=== PATIENT | male | born 1960 | race Caucasian/White ===

== ENCOUNTER 2021-07-13 23:20 | Emergency (ER) | payer MEDICARE, MEDICAID, SELFPAY ==
[2021-07-13 23:44] VITALS: BP 137/89; PULSE 90; RESP 18; TEMP 36.3; O2SAT 98; BMI 26.4
== END 2021-07-14 00:25 | disposition left against medical advice (07) ==
PROVIDERS: Emergency Provider Emergency Medicine
DX: F33.1 Major depressive disorder, recurrent, moderate (principal); R21 Rash and other nonspecific skin eruption; F41.1 Generalized anxiety disorder; F43.0 Acute stress reaction
CPT/HCPCS: 99281; 99282

== ENCOUNTER 2021-08-02 23:42 | Emergency (ER) | payer MEDICARE, MEDICAID, SELFPAY ==
[2021-08-02 23:45] VITALS: BP 138/87; PULSE 78; RESP 16; O2SAT 98; BMI 26.7
--- NOTE | 2021-08-03 00:09 | ED.SKABFB ---
HPI - Skin/Abscess/Foreign Bdy General Chief complaint: Skin/Abscess/Foreign Body Stated complaint: Rash on face Time Seen by Provider: 08/03/21 00:09 Source: patient Mode of arrival: ambulatory History of Present Illness HPI narrative: 61-year-old male with a past medical history of anxiety, depression, sleep apnea, presenting to the ED complaining of right-sided facial rash x1 week. Reports rash is pruritic, worse with shaving. Denies new exposures, lotions/detergents, recent trauma, tick/insect bites. Of note patient has old broken tooth, that is nontender, unchanged MD complaint: rash Related Data Previous Rx's Medication Instructions Recorded cetirizine 10 mg capsule (Zyrtec) 10 mg PO DAILY PRN #14 cap 08/03/21 diphenhydramine HCl 25 mg capsule 25 mg PO Q6H PRN #14 cap 08/03/21 (Benadryl) hydrocortisone 0.5 % topical cream 1 appl TOPICAL BID PRN #28.4 g 08/03/21 Allergies Allergy/AdvReac Type Severity Reaction Status Date / Time No Known Allergies Allergy Verified 07/13/21 23:43 Review of Systems Review of Systems: Constitutional: No Fever, No Chills ENT/Mouth: No Ear Pain, No Nasal Congestion, No sore throat, No Rhinorrhea, No Swallowing Difficulty Cardiovascular: No Chest Pain, No SOB Respiratory: No Cough Gastrointestinal: No Nausea, No Vomiting, No Abdominal pain Musculoskeletal: No joint pain, No Myalgias, No Joint Swelling Skin: No Skin Lesions, + rash Neuro: No Weakness, No Numbness, No Paresthesias Yes all other systems are reviewed and are negative [facility] Past Medical History Attestation statement: The following information was validated with the patient. Medical History (Updated 08/03/21 @ 00:12 by JAGJIT Torres) Anxiety Back pain Depression Sleep apnea Social History Social History Advance Directives: No Advance Directives Information Provided: No Physical Exam Vital Signs: Vital Signs: Last Vital Signs Pulse 78 08/02/21 23:45 Resp 16 08/02/21 23:45 BP 138/87 08/02/21 23:45 Pulse Ox 98 08/02/21 23:45 Body Mass Index 26.7 Const: General: cooperative, healthy appearing and no acute distress Orientation/consciousness: patient oriented x3 Limitations: no limitations HENMT: Other: No signs of intraoral infection/abscess, fluctuance or induration Head: Yes normal to inspection Ears: hearing grossly normal bilaterally General nose exam: Normal external nose present Teeth and gingiva: poor dentition Throat: Yes posterior oropharynx normal Eyes: General: appearance normal, both eyes and all related structures EOM: EOMs intact bilaterally Neck: Neck: Yes normal visual inspection Resp: Effort & Inspection: normal respiratory effort and no respiratory distress Cardio: Rate: regular rate Skin: Other: Right-side of face with large patch of raised erythema under canchola. No pustules/papules. Not warm Wounds: no wounds Neuro: General: patient oriented x3 Gait exam (Neuro): Normal gait present Extrem: General: Yes normal to inspection MDM - Skin/Abscess/Foreign Bdy MDM Narrative Medical decision making narrative: 61-year-old male with a past medical history of anxiety, depression, sleep apnea, presenting to the ED complaining of right-sided facial rash x1 week. On exam vital signs stable, rash appears to be a eczematous. Lower suspicion for folliculitis or cellulitis. Will prescribe patient low potency topical steroid, Benadryl, and Zyrtec Medical Records Attestation: I reviewed the patient's medical records. Lab Data Attestation: I reviewed the patient's lab results. Discharge Plan Discharge Clinical Impression: Facial dermatitis Patient Disposition: Home, Self-Care Instructions: Dermatitis (ED) Additional Instructions: Benadryl and Zyrtec will help with itching/allergic symptoms, take Benadryl at night as it will make you drowsy Hydrocortisone as a topical steroid cream, apply only to rash on face, do not apply in excessive amounts as topical steroids to face, dental so region, hands, and feet can potentially discolor your skin, this usually only happens at high potency doses which you were not prescribed Please follow-up with her doctor, in dermatology If rash persists or worsens, you develop fever please return to the ED Prescriptions: New diphenhydramine HCl [Benadryl] 25 mg capsule 25 mg PO Q6H PRN (Reason: allergic symptoms) Qty: 14 RF: 0 Zyrtec 10 mg capsule 10 mg PO DAILY PRN (Reason: allergy symptoms) Qty: 14 RF: 0 hydrocortisone 0.5 % cream 1 appl topical BID PRN (Reason: rash) Qty: 28.4 RF: 0 Referrals: Alberto Kelly MD [Physician] - 2 days Namita Tran NP [Nurse Practitioner] - 2 days Heather Laguna PA-C [Physician Recovery Operator Helper] - 2 days Alison Villalpando PA-C [Physician Recovery Operator Helper] - 2 days Paddy Barroso MD [Physician] - 2 days
== END 2021-08-03 00:29 | disposition home or self-care (01) ==
PROVIDERS: Emergency Provider Emergency Medicine Emergency Medical Services
DX: L30.9 Dermatitis, unspecified (principal)
CPT/HCPCS: 99283

== ENCOUNTER 2021-12-20 11:36 | Emergency (ER) | payer MEDICARE, MEDICAID, SELFPAY ==
[2021-12-20 11:44] VITALS: BP 142/92; PULSE 100; RESP 18; TEMP 36.1; O2SAT 99; BMI 27.4
[2021-12-20] MEDS: Ketorolac Tromethamine 30 MG/ML VIAL IM (12:18)
[2021-12-20 12:22] LABS: MANUAL DIFF FLAG NO
[2021-12-20 12:27] LABS: Basophils Percent Auto 0.6 % (0-2); Eosinophils Absolute Auto 0.6 X10*3/uL (0.0-0.4); Hematocrit 46.1 % (42.0-52.0); Hemoglobin 15.5 g/dl (14.0-18.0); Imm Gran Abs Auto 0.01 X10*3/uL (0.00-0.03); Imm Gran Pct Auto 0.1 % (0.0-0.4); Lymphocytes Absolute Auto 1.4 X10*3/uL (1.2-4.9); Lymphocytes Percent Auto 19.5 % (20-40); Mean Corpuscular HGB Conc 33.6 g/dl (31.0-36.0); Mean Corpuscular Volume 95.2 fL (80.0-98.0); Mean Platelet Volume 9.3 fL (9.4-12.4); Monocytes Absolute Auto 0.8 X10*3/uL (0.1-1.2); Monocytes Percent Auto 11.4 % (2-11); Neutrophils Absolute Auto 4.2 x10*3/uL (2.0-8.3); Neutrophils Percent Auto 59.4 % (45-73); Platelet Count 185 X10*3/uL (160-400); Red Blood Count 4.84 X10*6/uL (4.60-5.80); Red Cell Distribution Width 12.2 % (11.0-16.0)
--- NOTE | 2021-12-20 12:38 | ED_ITS ---
HPI - General Adult General Chief complaint: General Medical Stated complaint: eyes swollen/itchiness/redness Time Seen by Provider: 12/20/21 11:55 Source: patient Mode of arrival: ambulatory History of Present Illness HPI narrative: 61-year-old male with past medical history of anxiety, depression, sleep apnea, presenting to the ED complaining of facial erythema, pain, and dry/cracking skin x months. Reports finished antibiotics a few weeks ago by PCP without improvement. Was also seen in our ED for similar symptoms in October without improvement. Admits has dermatology follow-up in 3 weeks. Reports skin burning and feels hot. Denies ocular involvement, vision change, pain with EOMs, drainage from face, fever, chills, sore throat, new exposures Onset (ago): month(s) Related Data Previous Rx's Medication Instructions Recorded cetirizine 10 mg capsule (Zyrtec) 10 mg PO DAILY PRN #14 cap 08/03/21 diphenhydramine HCl 25 mg capsule 25 mg PO Q6H PRN #14 cap 08/03/21 (Benadryl) hydrocortisone 0.5 % topical cream 1 appl TOPICAL BID PRN #28.4 g 08/03/21 bacitracin 500 unit/gram topical 1 appl TOPICAL BID #30 g 12/20/21 ointment Allergies Allergy/AdvReac Type Severity Reaction Status Date / Time No Known Allergies Allergy Verified 07/13/21 23:43 Review of Systems Review of Systems: Constitutional: No Fever, No Chills ENT/Mouth: No Ear Pain, No Hoarseness, No sore throat, No Rhinorrhea, No Swallow ing Difficulty Cardiovascular: No Chest Pain, No SOB Respiratory: No Cough, No Wheezing Gastrointestinal: No Nausea, No Vomiting, No Abdominal pain Genitourinary: No Dysuria, No Flank Pain Musculoskeletal: No joint pain, No Myalgias, No Joint Swelling Skin: No Skin Lesions, + rash Neuro: No Weakness, No Numbness, No Paresthesias Yes all other systems are reviewed and are negative [facility] Past Medical History Attestation statement: The following information was validated with the patient. Medical History Anxiety Back pain Depression Sleep apnea Social History Social History Advance Directives: No Advance Directives Information Provided: No Physical Exam ED Vital Signs: Vital Signs - 24 hr 12/20/21 11:44 Temperature 97.0 F Pulse Rate 100 Respiratory Rate 18 Blood Pressure 142/92 H Pulse Oximetry 99 BMI result Body Mass Index 27.4 Const General: cooperative, healthy appearing and no acute distress Orientation/consciousness: patient oriented x3 Limitations: no limitations HENMT Head: Yes normal to inspection Ears: hearing grossly normal bilaterally General nose exam: Normal external nose present Mouth: Normal oral and palatal mucosa present Throat: Yes posterior oropharynx normal, Yes uvula midline, No peritonsillar mass and No uvula laterally displaced Eyes General: appearance normal, both eyes and all related structures EOM: EOMs intact bilaterally Neck Neck: Yes normal visual inspection and Yes no meningeal signs Resp Effort & Inspection: normal respiratory effort and no respiratory distress Cardio Rate: regular rate Heart sounds: S1 normal heart sound present and S2 normal heart sound present Skin Other: +facial flushing with skin cracking/dry skin > infraorbitally. No warmth. No drainage. No fluctuance/induration No appreciable ocular involvement. EOMs intact without pain Rashes: rashes noted Wounds: no wounds Neuro General: patient oriented x3 and no meningeal signs Gait exam (Neuro): Normal gait present Extrem General: Yes normal to inspection Course Course Course Narrative: -[id number]--no leukocytosis. Labs otherwise unremarkable. Patient is to follow-up with Dermatology. Medical Decision Making MDM Narrative Medical decision making narrative: 61-year-old male with past medical history of anxiety, depression, sleep apnea, presenting to the ED complaining of facial erythema, pain, and dry/cracking skin x months. On exam vital signs stable, NAD, physical exam as above, consistent with ?Psoriasis vs rosacea vs Dermatitis. Lower concern for cellulitis. Low concern for allergic reaction/exposure due to length of time. Plan: CBC, BMP Medical Records Medical records reviewed: Yes I reviewed the patient's medical records. Lab Data Lab results reviewed: Yes I reviewed the patient's lab results. Result diagrams: 12/20/21 12:17 12/20/21 12:17 Labs: Lab Results 12/20/21 12/20/21 Range/Units 12:17 12:17 WBC 7.0 (4.8-10.8) X10*3/uL RBC 4.84 (4.60-5.80) X10*6/uL Hgb 15.5 (14.0-18.0) g/dl Hct 46.1 (42.0-52.0) % MCV 95.2 (80.0-98.0) fL MCH 32.0 (27.0-33.0) pg MCHC 33.6 (31.0-36.0) g/dl RDW 12.2 (11.0-16.0) % Plt Count 185 (160-400) X10*3/uL MPV 9.3 L (9.4-12.4) fL Immature Gran % (Auto) 0.1 (0.0-0.4) % Neut % (Auto) 59.4 (45-73) % Lymph % (Auto) 19.5 L (20-40) % [place] % (Auto) 11.4 H (2-11) % Eos % (Auto) 9.0 H (0-4) % Baso % (Auto) 0.6 (0-2) % Lymph # (Auto) 1.4 (1.2-4.9) X10*3/uL [place] # (Auto) 0.8 (0.1-1.2) X10*3/uL Eos # (Auto) 0.6 H (0.0-0.4) X10*3/uL Baso # (Auto) 0.0 (0.0-0.2) X10*3/uL Abs Immat Gran (auto) 0.01 (0.00-0.03) X10*3/uL Absolute Neuts (auto) 4.2 (2.0-8.3) x10*3/uL Absolute Nucleated RBC 0.000 (0.0-0.012) X10*3/uL Nucleated RBC % (auto) 0.0 (0.0-0.2) /100WBC Sodium 139 (135-145) mmol/L Potassium 4.2 (3.3-5.1) mmol/L Chloride 105 (96-108) mmol/L Carbon Dioxide 29 (22-29) mmol/L Anion Gap 9 L (12-20) BUN 14 (9-16) mg/dL Creatinine 1.11 (0.5-1.4) mg/dL Estim Creat Clear Calc 60.7 Estimated GFR > 60 Random Glucose 106 (60-115) mg/dL Calcium 9.5 (8.4-10.2) mg/dL Discharge Plan Discharge Clinical Impression: Facial flushing Patient Disposition: Home, Self-Care Additional Instructions: YOU NEED TO FOLLOW-UP WITH DERMATOLOGY Try topical bacitracin she is an antibiotic ointment, avoid contact with the RI apply topical Eucerin, [id number] lotion. Keep area moist. Avoid the sun if area begins to look infected, is red, you have drainage from the area, developed fever please return to the emergency department NECESITAS SEGUIMIENTO CON DERMATOLOG?A Pruebe la bacitracina t?pica, es aletha pomada antibi?teresa, evite el contacto con el RI. aplique Eucerin t?nelson, loci?n de venta ash. Mantenga el ?aleksandra h?tata. Kassi el kofi si el ?aleksandra comienza a lucir infectada, est? tanner, tiene drenaje del ?aleksandra, desarroll? fiebre, regrese al departamento de emergencias Prescriptions: New bacitracin 500 unit/gram ointment 1 appl topical BID Qty: 30 1RF No Action diphenhydramine HCl [Benadryl] 25 mg capsule 25 mg PO Q6H PRN (Reason: allergic symptoms) Qty: 14 0RF Zyrtec 10 mg capsule 10 mg PO DAILY PRN (Reason: allergy symptoms) Qty: 14 0RF hydrocortisone 0.5 % cream 1 appl topical BID PRN (Reason: rash) Qty: 28.4 0RF Rx Instructions: Only apply to rash, do not apply excessive amounts to face, genital region, hands, or feet as has potentiate old to discolor skin at high potency doses Referrals: Halle Barnes PA [Physician Automatic Seamer] - 2 days Mauricio Foster MD [Physician] - 2 days Angel Machado MD [Physician] - 2 days Alberto Kelly MD [Physician] - 2 days Alison Villalpando PA-C [Physician Automatic Seamer] - 2 days Ferdinand Guzmán MD [Physician] - 2 days Paddy Barroso MD [Physician] - 2 days Can Mckenzie MD [Physician] - 2 days Kina Samano MD [Physician] - 2 days Ranjan Rascon MD [Primary Care Provider] - 2 days Kelsie Swift MD [Physician] - 2 days Charline Blue PA [Physician Automatic Seamer] - 2 days Print Language: Citizen [place]
[2021-12-20 12:43] LABS: Anion Gap 9 (12-20); Blood Urea Nitrogen 14 mg/dL (9-16); Calcium 9.5 mg/dL (8.4-10.2); Carbon Dioxide 29 mmol/L (22-29); Chloride 105 mmol/L (96-108); Creatinine Clr Calc Pharmacy 60.7; Estimated Glomerular Filt Rate > 60; Glucose Random 106 mg/dL (60-115); Potassium 4.2 mmol/L (3.3-5.1); Sodium 139 mmol/L (135-145)
== END 2021-12-20 13:24 | disposition home or self-care (01) ==
PROVIDERS: Physician Assistant; Emergency Provider Emergency Medicine; PCP Internal Medicine
DX: R23.2 Flushing (principal); R21 Rash and other nonspecific skin eruption; Z79.899 Other long term (current) drug therapy
CPT/HCPCS: 36415; 80048; 85025; 96372; 99284; J1885

== ENCOUNTER 2022-12-25 14:07 | Emergency (ER) | payer MEDICARE, MEDICAID, SELFPAY ==
[2022-12-25 14:11] VITALS: BP 136/94; PULSE 118; RESP 20; TEMP 36.8; O2SAT 96; BMI 27.3
--- NOTE | 2022-12-25 14:22 | ED_ITS ---
HPI - Psych General Chief Complaint: Psychiatric Symptoms Stated Complaint: crisis Time Seen by Provider: 12/25/22 14:21 Source: patient Mode of arrival: ambulatory Limitations: no limitations History of Present Illness HPI Narrative: 62 yo male with history of depression & anxiety presents to the ER for evaluation of worsening depression, anxiety, anger and inability to control his emotions for the last 2 days. He states he has had similar episodes in the past. He denies any inpatient admissions psychiatrically. He states he used to be on medication for depression but stopped taking it 2 weeks ago. He does not know the name. He denies any suicidality but reports homicidality. He states he angered very easily. He reports decrease in his sleep, only sleeping 2-3 hours per night. He also reports decreased p.o. intake. He denies any drug or alcohol use. MD complaint: feels depressed and anxiety Onset (ago): day(s) (2) Duration: getting worse History of same: Yes Relieving factors: none Exacerbating factors: none Associated psychiatric symptoms: depression and racing thoughts Associated symptoms: insomnia Treatments prior to arrival: none Related Data Previous Rx's Medication Instructions Recorded cetirizine 10 mg capsule (Zyrtec) 10 mg PO DAILY PRN allergy 08/03/21 symptoms #14 caps diphenhydramine HCl 25 mg capsule 25 mg PO Q6H PRN allergic symptoms 08/03/21 (Benadryl) #14 caps hydrocortisone 0.5 % topical cream 1 appl topical BID PRN rash #28.4 08/03/21 grams bacitracin 500 unit/gram topical 1 appl topical BID #30 grams 12/20/21 ointment Allergies Allergy/AdvReac Type Severity Reaction Status Date / Time No Known Allergies Allergy Verified 07/13/21 23:43 Review of Systems Review of Systems: Yes all other systems are reviewed and are negative [facility] Past Medical History Medical History Anxiety Back pain Depression Sleep apnea Social History Social History Advance Directives: No Physical Exam Vital Signs: Vital Signs: Last Vital Signs Temp 98.3 F 12/25/22 14:11 Pulse 118 H 12/25/22 14:11 Resp 20 12/25/22 14:11 BP 136/94 H 12/25/22 14:11 Pulse Ox 96 12/25/22 14:11 O2 Del Method 12/25/22 14:11 BMI result Body Mass Index 27.3 Appearance: Alert. Oriented X3. No acute distress. Eyes: Pupils equal, round and reactive to light. ENT: Pharynx normal. Neck: Normal inspection. Neck supple. CVS: Normal heart rate and rhythm. Pulses normal. Respiratory: No respiratory distress. Breath sounds normal. Abdomen: Soft and nontender. +BS x4 Skin: Skin warm and dry. Normal skin color. Normal skin turgor. No rashes. Extremities: No lower extremity edema. Neuro/psych: Oriented X 3. No motor deficit. No sensory deficit. CN II-XII intact. normal speech and cognition. makes eye contact and answers questions appropriately. depressed mood. no AH/VH, no suicidal thoughts. Medical Decision Making Medical Decision Making [facility] Narrative: 62-year-old male with history of anxiety, depression presents to the ER for evaluation of worsening depression anxiety along with inability to control his emotions and anger. He is not suicidal but endorses some vague homicidal thoughts, nothing specific. He in dorsal is decreased p.o. intake and sleep. He seems appropriate on examination today. Medical lab workup is unremarkable. Of no COVID screening test does reveal that he is positive for COVID-19. He is asymptomatic and fully vaccinated. Will place patient in physician observation at this time. Physician observation started at 15:24. Patient placed in physician observation because patient is awaiting CARE team evaluation for the possible need of inpatient psych admission. At the time observation was started patient's vital signs were stable. Patient is alert and oriented. Neuro exam is non-focal. CV: RRR and lungs are clear. Will continue to monitor. Differential Diagnosis Differential Diagnoses: The differential diagnosis associated with the presentation includes Depression, anxiety, acute psychotic episode, bipolar, substance induced mood disorder Lab Data [facility] Lab Attestation statement: I reviewed the patient's lab results. COVID positive, asymptomatic and vaccinated 12/25/22 15:00 12/25/22 15:00 Labs: Lab Results 12/25/22 12/25/22 12/25/22 Range/Units 15:00 15:00 15:00 WBC 8.3 (4.8-10.8) X10*3/uL RBC 4.72 (4.60-5.80) X10*6/uL Hgb 15.0 (14.0-18.0) g/dl Hct 44.2 (42.0-52.0) % MCV 93.6 (80.0-98.0) fL MCH 31.8 (27.0-33.0) pg MCHC 33.9 (31.0-36.0) g/dl RDW 12.8 (11.0-16.0) % Plt Count 163 (160-400) X10*3/uL MPV 9.5 (9.4-12.4) fL Immature Gran % (Auto) 0.4 (0.0-0.4) % Neut % (Auto) 83.8 H (45-73) % Lymph % (Auto) 9.4 L (20-40) % [place] % (Auto) 5.5 (2-11) % Eos % (Auto) 0.5 (0-4) % Baso % (Auto) 0.4 (0-2) % Lymph # (Auto) 0.8 L (1.2-4.9) X10*3/uL [place] # (Auto) 0.5 (0.1-1.2) X10*3/uL Eos # (Auto) 0.0 (0.0-0.4) X10*3/uL Baso # (Auto) 0.0 (0.0-0.2) X10*3/uL Abs Immat Gran (auto) 0.03 (0.00-0.03) X10*3/uL Absolute Neuts (auto) 7.0 (2.0-8.3) x10*3/uL Absolute Nucleated RBC 0.000 (0.0-0.012) X10*3/uL Nucleated RBC % (auto) 0.0 (0.0-0.2) /100WBC Sodium 138 (135-145) mmol/L Potassium 4.0 (3.3-5.1) mmol/L Chloride 109 H (96-108) mmol/L Carbon Dioxide 23 (22-29) mmol/L Anion Gap 10 L (12-20) BUN 15 (9-16) mg/dL Creatinine 1.20 (0.5-1.4) mg/dL Estim Creat Clear Calc 55.3 Estimated GFR > 60 Random Glucose 122 H (60-115) mg/dL Calcium 9.1 (8.4-10.2) mg/dL Magnesium 1.8 (1.6-2.6) mg/dL Total Bilirubin 0.7 (0.0-1.0) mg/dL Direct Bilirubin < 0.2 (0.0-0.5) mg/dL AST 33 (5-37) U/L ALT 40 (0-40) U/L Alkaline Phosphatase 80 (39-117) U/L Total Protein 6.9 (6.5-8.0) g/dL Albumin 4.0 (3.5-5.0) g/dL Ethyl Alcohol mg/dL COVID-19 ([facility]) Positive A (Negative) COVID-19 Clin Com See Note 12/25/22 Range/Units 15:00 WBC (4.8-10.8) X10*3/uL RBC (4.60-5.80) X10*6/uL Hgb (14.0-18.0) g/dl Hct (42.0-52.0) % MCV (80.0-98.0) fL MCH (27.0-33.0) pg MCHC (31.0-36.0) g/dl RDW (11.0-16.0) % Plt Count (160-400) X10*3/uL MPV (9.4-12.4) fL Immature Gran % (Auto) (0.0-0.4) % Neut % (Auto) (45-73) % Lymph % (Auto) (20-40) % [place] % (Auto) (2-11) % Eos % (Auto) (0-4) % Baso % (Auto) (0-2) % Lymph # (Auto) (1.2-4.9) X10*3/uL [place] # (Auto) (0.1-1.2) X10*3/uL Eos # (Auto) (0.0-0.4) X10*3/uL Baso # (Auto) (0.0-0.2) X10*3/uL Abs Immat Gran (auto) (0.00-0.03) X10*3/uL Absolute Neuts (auto) (2.0-8.3) x10*3/uL Absolute Nucleated RBC (0.0-0.012) X10*3/uL Nucleated RBC % (auto) (0.0-0.2) /100WBC Sodium (135-145) mmol/L Potassium (3.3-5.1) mmol/L Chloride (96-108) mmol/L Carbon Dioxide (22-29) mmol/L Anion Gap (12-20) BUN (9-16) mg/dL Creatinine (0.5-1.4) mg/dL Estim Creat Clear Calc Estimated GFR Random Glucose (60-115) mg/dL Calcium (8.4-10.2) mg/dL Magnesium (1.6-2.6) mg/dL Total Bilirubin (0.0-1.0) mg/dL Direct Bilirubin (0.0-0.5) mg/dL AST (5-37) U/L ALT (0-40) U/L Alkaline Phosphatase (39-117) U/L Total Protein (6.5-8.0) g/dL Albumin (3.5-5.0) g/dL Ethyl Alcohol < 10 mg/dL COVID-19 ([facility]) (Negative) COVID-19 Clin Com External Record Review External record reviewed: Outpatient record Chronic Conditions Patient?s care impacted by: Other (depression/mental illness) Critical Care Time Critical Care Time Critical Care Time: No Discharge Plan Discharge Clinical Impression: Depression, COVID-19 Patient Disposition: Still a Patient Prescriptions: No Action diphenhydramine HCl [Benadryl] 25 mg capsule 25 mg PO Q6H PRN (Reason: allergic symptoms) Qty: 14 0RF Zyrtec 10 mg capsule 10 mg PO DAILY PRN (Reason: allergy symptoms) Qty: 14 0RF hydrocortisone 0.5 % cream 1 appl topical BID PRN (Reason: rash) Qty: 28.4 0RF Rx Instructions: Only apply to rash, do not apply excessive amounts to face, genital region, hands, or feet as has potentiate old to discolor skin at high potency doses bacitracin 500 unit/gram ointment 1 appl topical BID Qty: 30 1RF
--- NOTE | 2022-12-25 14:26 | PC.NURSE ---
Patient presents to ED with report of feeling depressed vague SI/HI no plan not currently on medications. Alert oriented no agitation noted. Vague as to if he is currently homeless. No repsiratory distress nnoted denies chest pain or SOB will CTM
--- NOTE | 2022-12-25 14:31 | PC.NURSE ---
Security with patient to change patient over will CTM
[2022-12-25 15:05] LABS: MANUAL DIFF FLAG NO
[2022-12-25 15:10] LABS: Basophils Percent Auto 0.4 % (0-2); Eosinophils Percent Auto 0.5 % (0-4); Hematocrit 44.2 % (42.0-52.0); Imm Gran Abs Auto 0.03 X10*3/uL (0.00-0.03); Imm Gran Pct Auto 0.4 % (0.0-0.4); Lymphocytes Absolute Auto 0.8 X10*3/uL (1.2-4.9); Lymphocytes Percent Auto 9.4 % (20-40); Mean Corpuscular HGB Conc 33.9 g/dl (31.0-36.0); Mean Corpuscular Hemoglobin 31.8 pg (27.0-33.0); Mean Corpuscular Volume 93.6 fL (80.0-98.0); Mean Platelet Volume 9.5 fL (9.4-12.4); Monocytes Absolute Auto 0.5 X10*3/uL (0.1-1.2); Monocytes Percent Auto 5.5 % (2-11); Neutrophils Percent Auto 83.8 % (45-73); Platelet Count 163 X10*3/uL (160-400); Red Blood Count 4.72 X10*6/uL (4.60-5.80); Red Cell Distribution Width 12.8 % (11.0-16.0); White Blood Count 8.3 X10*3/uL (4.8-10.8)
[2022-12-25 15:21] LABS: Alanine Aminotransferase 40 U/L (0-40); Alkaline Phosphatase 80 U/L (39-117); Anion Gap 10 (12-20); Aspartate Amino Transferase 33 U/L (5-37); Bilirubin Direct < 0.2 mg/dL (0.0-0.5); Bilirubin Total 0.7 mg/dL (0.0-1.0); Blood Urea Nitrogen 15 mg/dL (9-16); Calcium 9.1 mg/dL (8.4-10.2); Carbon Dioxide 23 mmol/L (22-29); Chloride 109 mmol/L (96-108); Creatinine Clr Calc Pharmacy 55.3; Estimated Glomerular Filt Rate > 60; Glucose Random 122 mg/dL (60-115); Magnesium 1.8 mg/dL (1.6-2.6); Sodium 138 mmol/L (135-145); Total Protein 6.9 g/dL (6.5-8.0)
[2022-12-25 15:29] LABS: Ethanol < 10 mg/dL
[2022-12-25 15:44] LABS: IDNOW Serial# BCCEAD1C
[2022-12-25 15:45] LABS: COVID-19 Test Positive (Negative)
--- NOTE | 2022-12-25 19:14 | PC.NURSE ---
assumed care of patient at 1900
[2022-12-25 20:45] VITALS: BP 145/82; PULSE 75; RESP 16; TEMP 36.9; O2SAT 100
[2022-12-25 20:51] LABS: Amphetamine Screen Urine Not Detected (Not Detect); Barbiturates, Urine Not Detected (Not Detect); Benzodiazepines Screen Urine Not Detected (Not Detect); Cannabinoid Screen Urine Not Detected (Not Detect); Cocaine Screen Urine Not Detected (Not Detect); Fentanyl, urine Not Detected (Not Detect); Opiate Screen Urine Not Detected (Not Detect); Phencyclidine Screen Urine Not Detected (Not Detect)
--- NOTE | 2022-12-25 22:38 | PC.NURSE ---
CARE team at bedside assessing patient now . medial tax staff accountant being used
--- NOTE | 2022-12-25 22:48 | PC.NURSE ---
CARE team spoke with patient and is recommending psychiatry consult tomorrow AM for medication changes. patient states he stopped taking all of his meds abut 2 weeks ago because he was started on a new one and then became agitated, increased anxiety and depression, so stopped taking all meds. denies SI/HI currently.
[2022-12-26 00:13] VITALS: BP 117/71; PULSE 57; RESP 16; TEMP 36.8; O2SAT 97
[2022-12-26 06:07] VITALS: BP 117/64; PULSE 73; RESP 16; TEMP 36.2; O2SAT 94
--- NOTE | 2022-12-26 14:58 | P.CNPS_ITS ---
History of Present Illness Date of Service: 12/26/2022 Chief Complaint: crisis Reason for Consult: medications Discussed with referring provider: Yes Sources of Information: patient interviewed, chart reviewed and crisis/core team assessment reviewed HPI Narrative: Mr. Negrete is a 62 year-old male with hx of MDD and anxiety. Pt self presented to [facility] ED on 12/25/2022 reporting increase anxiety, poor sleep, agitation for the past 2 weeks. Pt denied suicidal or homicidal ideation. Pt seen by care team and cleared to return home. In the ED, pt was found to be positive for covid. He denies any physical symptoms. Pt seen in ED. Pt had reported side effects with medications. Pt reports he was started on clonazepam and buspar. He tried these two medication but became irritable. He states he stopped them. He reports he was also prescribed amitriptilyne 10mg po qhs but states that he read side effect profile and did not take the medication. [facility] Medical History Anxiety Back pain Depression Sleep apnea Diagnostics Vital Signs (24Hr): Vital Signs - 24 hr 12/25/22 20:45 12/26/22 00:13 12/26/22 06:07 Temperature 98.5 F 98.3 F 97.2 F Pulse Rate 75 57 73 Respiratory Rate 16 16 16 Blood Pressure 145/82 H 117/71 117/64 Pulse Oximetry 100 97 94 Oxygen Delivery Method Room Air Room Air Room Air BMI result Body Mass Index 27.3 Labs 12/25/22 15:00 12/25/22 15:00 Labs: Laboratory Results - last 48 hr 12/25/22 12/25/22 12/25/22 15:00 15:00 15:00 WBC 8.3 RBC 4.72 Hgb 15.0 Hct 44.2 MCV 93.6 MCH 31.8 MCHC 33.9 RDW 12.8 Plt Count 163 MPV 9.5 Immature Gran % (Auto) 0.4 Neut % (Auto) 83.8 H Lymph % (Auto) 9.4 L Hardeman % (Auto) 5.5 Eos % (Auto) 0.5 Baso % (Auto) 0.4 Lymph # (Auto) 0.8 L Hardeman # (Auto) 0.5 Eos # (Auto) 0.0 Baso # (Auto) 0.0 Abs Immat Gran (auto) 0.03 Absolute Neuts (auto) 7.0 Absolute Nucleated RBC 0.000 Nucleated RBC % (auto) 0.0 Sodium 138 Potassium 4.0 Chloride 109 H Carbon Dioxide 23 Anion Gap 10 L BUN 15 Creatinine 1.20 Estim Creat Clear Calc 55.3 Estimated GFR > 60 Random Glucose 122 H Calcium 9.1 Magnesium 1.8 Total Bilirubin 0.7 Direct Bilirubin < 0.2 AST 33 ALT 40 Alkaline Phosphatase 80 Total Protein 6.9 Albumin 4.0 Urine Opiates Screen Urine Fentanyl Screen Ur Barbiturates Screen Ur Phencyclidine Scrn Ur Amphetamines Screen U Benzodiazepines Scrn Urine Cocaine Screen U Marijuana (THC) Screen Ethyl Alcohol COVID-19 ([facility]) Positive A COVID-19 Clin Com See Note 12/25/22 12/25/22 15:00 20:33 WBC RBC Hgb Hct MCV MCH MCHC RDW Plt Count MPV Immature Gran % (Auto) Neut % (Auto) Lymph % (Auto) Hardeman % (Auto) Eos % (Auto) Baso % (Auto) Lymph # (Auto) Hardeman # (Auto) Eos # (Auto) Baso # (Auto) Abs Immat Gran (auto) Absolute Neuts (auto) Absolute Nucleated RBC Nucleated RBC % (auto) Sodium Potassium Chloride Carbon Dioxide Anion Gap BUN Creatinine Estim Creat Clear Calc Estimated GFR Random Glucose Calcium Magnesium Total Bilirubin Direct Bilirubin AST ALT Alkaline Phosphatase Total Protein Albumin Urine Opiates Screen Not Detected Urine Fentanyl Screen Not Detected Ur Barbiturates Screen Not Detected Ur Phencyclidine Scrn Not Detected Ur Amphetamines Screen Not Detected U Benzodiazepines Scrn Not Detected Urine Cocaine Screen Not Detected U Marijuana (THC) Screen Not Detected Ethyl Alcohol < 10 COVID-19 ([facility]) COVID-19 Clin Com Mental Status Exam Mental Status Exam Narrative: Appearance: wearing hospital gown, fair hygiene, in NAD behavior: cooperative Psychomotor: no agitation or retardation noted Speech: clear, normal rate/rhythm/volume, spontaneous TP: linear TC: no signs of psychosis Mood: anxious' Affect: cnogruent SI: denies HI: denies VH/AH: none Delusions: none Insight/judgment: fair x 2. Memory/cog: alert, oriented x3. Medications Allergies Allergies Allergy/AdvReac Type Severity Reaction Status Date / Time No Known Allergies Allergy Verified 07/13/21 23:43 Assessment & Plan Assessment & Plan (1) MDD (major depressive disorder), recurrent episode, moderate: Status: Acute Code(s): F33.1 - Major depressive disorder, recurrent, moderate Plan Mr. Negrete is a 62 year-old male with hx of MDD and anxiety. Pt reports recent medication changes. He reports feeling more irritable with clonazepam. He reports he stopped medications. He reports he was also prescribed amitriptyline but when he read side effects he did not take any capsules. Pt asking for new medication. Pt educated on potential for side effects but without trial difficult to know what would work for him or not. Also discussed with pt that c lonazepam not typically known for causing irritability. Encouraged pt to follow up with his OP providers, Jerome Franklin at [facility]. Pt in agreement with plan. No imminent safety concerns in terms of suicidal or homicidal ideation. Total time managing care of this patient today ____ minutes.
== END 2022-12-26 14:19 | disposition home or self-care (01) ==
PROVIDERS: Physician Assistant; Emergency Provider Emergency Medicine; PCP Internal Medicine
DX: U07.1 COVID-19 (principal); F32.A Depression, unspecified; Z79.899 Other long term (current) drug therapy
CPT/HCPCS: 36415; 80048; 80076; 80307; 82077; 83735; 85025; 87635; 99284; 99285; S9485